=== PATIENT | male | born 2000 | race Caucasian/White ===

== ENCOUNTER 2022-02-27 10:28 | Emergency (ER) | payer BC, SELFPAY ==
[2022-02-27 11:01] VITALS: BP 128/63; PULSE 81; PULSE 87; RESP 18; TEMP 36.1; O2SAT 95; O2SAT 96; BMI 22.9
--- NOTE | 2022-02-27 12:33 | ED.ALCOHOL ---
HPI - Alcohol General Chief Complaint: ETOH/Substance Use Stated Complaint: ETOH INTOXICATION Time Seen by Provider: 02/27/22 11:01 Source: family (Father, Yvon) Mode of arrival: EMS Limitations: altered mental status (Acute intoxication) History of Present Illness HPI narrative: 21-year-old male who was brought to the emergency department by ambulance for evaluation of acute intoxication. The patient is here in the [place] area with his family for his sisters graduation from [employer]. According to the father, the patient was very tired this morning the father suspects that he was drinking alcohol last night. The patient had a water bottle with him that he was drinking from which father believes contain alcohol. They were at [facility] for a graduation parade when the patient lost his balance and fell scraping his left knee. According to the father, the patient did not hit his head. The patient was very lethargic, there was a strong odor of alcohol on his breath and the family was concerned that he is intoxicated so the called an ambulance the patient was transported to the emergency department for evaluation. According to the father this is the 3rd time that the patient has been acutely intoxicated. The 1st episode was in November and the 2nd 1 was in February. The father states that the patient has a history of insomnia, depression and anxiety. Father states the patient was a vegan and that the patient does not use illicit substances as far as the father is aware. The father states that the patient did have COVID-19 in January and still has fatigue and lethargy from the infection. Related Data Allergies Allergy/AdvReac Type Severity Reaction Status Date / Time No Known Allergies Allergy Verified 02/27/22 12:31 Review of Systems Review of Systems: Yes Unobtainable due to mental status (Acute intoxication) [facility] Past Medical History [facility] Narrative: Past medical history: Insomnia, depression, anxiety. Past surgical history: None. Social history: The patient does drink alcohol. He does not smoke cigarettes and does not use illicit substances according to the family. Social History Social History Advance Directives: No Physical Exam ED Vital Signs: Vital Signs - 24 hr 02/27/22 11:01 02/27/22 14:14 Temperature 97.0 F Pulse Rate 81 71 Respiratory Rate 18 18 Blood Pressure 128/63 124/62 Pulse Oximetry 95 97 BMI result Body Mass Index 22.9 Course Course Course Narrative: 21-year-old male who presents emergency department for evaluation of acute intoxication. The patient did have a fall earlier today but did not sustain a head injury. The patient's examination is consistent with acute intoxication most likely secondary to alcohol. At this time I think that the patient is too intoxicated to be discharged home I did discuss this with the patient's parents. They also agree that the patient is too intoxicated. The patient was placed on a cardiac and O2 saturation monitor. I did order laboratory evaluation as well. 1324: The patient's parents left. The patient then became very agitated. He tried to stand and walk on his apartment but he was very unsteady on his feet. Nursing staff, security and I tried to convince the patient to get back on the stretcher. The patient became very belligerent, he started yelling for his phone. We were able to get his phone from his parents however this did not calm the patient down he became more agitated. We were unable to redirect him. Given his acute intoxication is inability to walk, was concerned that the patient was in danger of hurting himself if we let him leave the emergency department therefore the patient was placed in 4 point restraints. The patient was also chemically medicated with Zyprexa 10 mg IM. 1429: The patient is resting comfortably on the stretcher, he is no longer agitated. The patient will be kept on the cardiac and O2 saturation monitor until he is sober and awake enough to be discharged. Laboratory evaluation: WBC low 4.2. Chloride high 115, CO2 low 19, LFTs were normal. Blood alcohol level was significantly elevated at 330. 1539: Start physician observation: The patient is resting comfortably after receiving the Zyprexa. Given his high blood alcohol level at maybe another 4-6 hours before the patient is sober enough to be discharged. Therefore, the patient will be kept in the emergency department on a cardiac and O2 saturation monitor and I will place him in physician observation. Examination: The patient is somnolent, he was able to tell me his name, lungs were clear, heart regular rate rhythm, abdomen soft nontender, patient can move all extremities symmetrically. I did update the patient's father about my plan to keep the patient in the emergency department. At some point however the patient wakes up and is sober prior to the end of 4-6 hours, then will we assessed him to determine if he is safe to be discharged in the care of his parents. 1651: Physician observation continued: At the end of my shift, the patient is still resting comfortably, remains on the cardiac and O2 saturation monitor. The patient's care was turned over to my colleague, Dr. Bee. MDM - Alcohol Lab Data Result diagrams: 02/27/22 12:44 02/27/22 12:44 Labs: Lab Results 02/27/22 02/27/22 02/27/22 Range/Units 12:44 12:44 12:44 WBC 4.2 L (4.8-10.8) X10*3/uL RBC 4.68 (4.60-5.80) X10*6/uL Hgb 14.9 (14.0-18.0) g/dl Hct 43.6 (42.0-52.0) % MCV 93.2 (80.0-98.0) fL MCH 31.8 (27.0-33.0) pg MCHC 34.2 (31.0-36.0) g/dl RDW 12.5 (11.0-16.0) % Plt Count 235 (160-400) X10*3/uL MPV 9.6 (9.4-12.4) fL Immature Gran % (Auto) 0.5 H (0.0-0.4) % Neut % (Auto) 51.0 (45-73) % Lymph % (Auto) 38.2 (20-40) % Childress % (Auto) 6.1 (2-11) % Eos % (Auto) 2.8 (0-4) % Baso % (Auto) 1.4 (0-2) % Lymph # (Auto) 1.6 (1.2-4.9) X10*3/uL Childress # (Auto) 0.3 (0.1-1.2) X10*3/uL Eos # (Auto) 0.1 (0.0-0.4) X10*3/uL Baso # (Auto) 0.1 (0.0-0.2) X10*3/uL Abs Immat Gran (auto) 0.02 (0.00-0.03) X10*3/uL Absolute Neuts (auto) 2.2 (2.0-8.3) x10*3/uL Absolute Nucleated RBC 0.000 (0.0-0.012) X10*3/uL Nucleated RBC % (auto) 0.0 (0.0-0.2) /100WBC Sodium 145 (135-145) mmol/L Potassium 4.4 (3.3-5.1) mmol/L Chloride 115 H (96-108) mmol/L Carbon Dioxide 19 L (22-29) mmol/L Anion Gap 15 (12-20) BUN 6 L (9-16) mg/dL Creatinine 0.79 (0.5-1.4) mg/dL Estim Creat Clear Calc 149.2 Estimated GFR > 60 Random Glucose 93 (60-115) mg/dL Calcium 8.4 (8.4-10.2) mg/dL Total Bilirubin 0.4 (0.0-1.0) mg/dL AST 24 (5-37) U/L ALT 23 (0-40) U/L Alkaline Phosphatase 57 (39-117) U/L Total Protein 6.9 (6.5-8.0) g/dL Albumin 4.5 (3.5-5.0) g/dL Ethyl Alcohol 330 H* mg/dL Discharge Plan Discharge Clinical Impression: Agitation Alcoholic intoxication Qualifiers: Complication of substance-induced condition: uncomplicated Qualified Code(s): F10.920 - Alcohol use, unspecified with intoxication, uncomplicated Patient Disposition: Still a Patient Instructions: Alcohol Intoxication (ED) Additional Instructions: The the legal level for blood alcohol intoxication is above 80. Your blood alcohol level was 330.The rest of your blood work was normal. Drinking strong alcohol over a short period of time can lead to a sudden rise in your blood alcohol level, this can lead to loss of consciousness, respiratory distress/depression and . You should consider getting counseling and help with your alcohol use disorder. Your alcohol intoxication lead to you becoming very agitated here in the emergency department. I was concerned that you were going to yourself or ED staff members therefore you received the sedative called Zyprexa 10 mg intramuscularly. This medicine did help you calm down. Follow-up with your doctor in 2 days. Please return to the emergency department if your symptoms get worse or if you develop any symptoms that are concerning to you.
[2022-02-27] MEDS: 0.9 % Sodium Chloride 1,000 ML 999 ML IV (12:46)
[2022-02-27 12:49] LABS: MANUAL DIFF FLAG NO
[2022-02-27 12:54] LABS: Basophils Absolute Auto 0.1 X10*3/uL (0.0-0.2); Basophils Percent Auto 1.4 % (0-2); Eosinophils Absolute Auto 0.1 X10*3/uL (0.0-0.4); Eosinophils Percent Auto 2.8 % (0-4); Hematocrit 43.6 % (42.0-52.0); Hemoglobin 14.9 g/dl (14.0-18.0); Imm Gran Abs Auto 0.02 X10*3/uL (0.00-0.03); Imm Gran Pct Auto 0.5 % (0.0-0.4); Lymphocytes Absolute Auto 1.6 X10*3/uL (1.2-4.9); Lymphocytes Percent Auto 38.2 % (20-40); Mean Corpuscular HGB Conc 34.2 g/dl (31.0-36.0); Mean Corpuscular Hemoglobin 31.8 pg (27.0-33.0); Mean Corpuscular Volume 93.2 fL (80.0-98.0); Mean Platelet Volume 9.6 fL (9.4-12.4); Monocytes Absolute Auto 0.3 X10*3/uL (0.1-1.2); Monocytes Percent Auto 6.1 % (2-11); Neutrophils Absolute Auto 2.2 x10*3/uL (2.0-8.3); Platelet Count 235 X10*3/uL (160-400); Red Blood Count 4.68 X10*6/uL (4.60-5.80); Red Cell Distribution Width 12.5 % (11.0-16.0); White Blood Count 4.2 X10*3/uL (4.8-10.8)
[2022-02-27 13:04] LABS: Ethanol 330 mg/dL
[2022-02-27 13:20] LABS: Alanine Aminotransferase 23 U/L (0-40); Albumin Level 4.5 g/dL (3.5-5.0); Alkaline Phosphatase 57 U/L (39-117); Anion Gap 15 (12-20); Aspartate Amino Transferase 24 U/L (5-37); Bilirubin Total 0.4 mg/dL (0.0-1.0); Blood Urea Nitrogen 6 mg/dL (9-16); Calcium 8.4 mg/dL (8.4-10.2); Carbon Dioxide 19 mmol/L (22-29); Chloride 115 mmol/L (96-108); Creatinine Clr Calc Pharmacy 149.2; Estimated Glomerular Filt Rate > 60; Glucose Random 93 mg/dL (60-115); Potassium 4.4 mmol/L (3.3-5.1); Sodium 145 mmol/L (135-145); Total Protein 6.9 g/dL (6.5-8.0)
--- NOTE | 2022-02-27 13:28 | PC.NURSE ---
family with patient up to this point. patient calm while family at bedside. patient refuses to take patient home with them and patient becomes agitated. RN, security and MD attempt to redirect patient for over 1 hr. patient refuses to leave hallway, requires physical redirection. placed in restraint. patient shows no evidence of any learning related to reasoning for restraint. patient repeats give me my phone over and over even after providing phone prior to restraint
[2022-02-27] MEDS: OLANZapine 10 MG VIAL IM (13:31)
--- NOTE | 2022-02-27 13:31 | PC.NURSE ---
PT OUT OF BEHAVIORAL CONTROL. DR CLEMENTS SPOKE WITH FATHER, EXPLAINED PLAN OF CARE. FATHER AGREEABLE. 4 POINT RESTRAINTS APPLIED.sitter at bedside
[2022-02-27 14:14] VITALS: BP 124/62; PULSE 71; RESP 18; O2SAT 97
--- NOTE | 2022-02-27 15:10 | PC.NURSE ---
patient sleeping quietly at this time, no apparent distress. positive chest rise and fall noted. pt on manager cardiac cath
== END 2022-02-27 20:19 | disposition home or self-care (01) ==
PROVIDERS: Emergency Provider Emergency Medicine Emergency Medical Services
DX: F10.129 Alcohol abuse with intoxication, unspecified (principal); Y90.8 Blood alcohol level of 240 mg/100 ml or more; R45.1 Restlessness and agitation; F33.1 Major depressive disorder, recurrent, moderate
CPT/HCPCS: 80053; 82077; 85025; 96360; 96372; 99281; 99285